=== PATIENT | male | born 1940 | race Caucasian/White ===

== ENCOUNTER → 2016-11-26 | Outpatient (CLI) | payer MEDICARE, BC ==
[~2016-11-26] MED LIST: ACYC-1 PO; ALLO300T74 PO; ASPI-13 PO; CALC-586 PO; CHEMOTHERAPY SQ; GLIM2TAB26 PO; LENA10CA PO; METF-206 PO; SULF1TAB42 PO; [UNRECOGNIZED DRUG - CODE] PO; [UNRECOGNIZED DRUG - OTHER]
[2016-11-26 09:25] LABS: HCT - HEMATOCRIT 33.3 % (41-53); HGB - HEMOGLOBIN 10.5 GM/DL (13.5-17.5); MEAN CORPUSCULAR HGB CONC(MCHC 31.5 GM/DL (31-37); MEAN CORPUSCULAR VOLUME 85.6 UM3 (80-100); MEAN PLATELET VOLUME 10.5 UM3 (9.4-12.4); RED BLOOD COUNT 3.89 M/MM3 (4.50-5.90); WBC - WHITE BLOOD COUNT 3.6 T/MM3 (4.5-11.0)
[2016-11-26 09:34] LABS: ALBUMIN 4.1 G/DL (3.5-5.0); ALBUMIN/GLOBULIN RATIO 1.2 RATIO (1.1-2.2); ALKALINE PHOSPHATASE 75 U/L (38-126); ALT (SGPT) 23 U/L (21-72); ANION GAP 9 MEQ/L (5-15); AST (SGOT) 16 U/L (17-59); BUN/CREATININE RATIO 16 RATIO (6-26); CALCIUM 9.4 MG/DL (8.4-10.2); CHLORIDE 104 MEQ/L (98-107); CO2 - CARBON DIOXIDE 27 MEQ/L (22-30); CREATININE 0.7 MG/DL (0.8-1.5); GLOMERULAR FILTRATION RATE 110; GLUCOSE 242 MG/DL (75-110); LDH 302 U/L (313-618); MAGNESIUM 1.9 MG/DL (1.6-2.3); POTASSIUM 4.6 MEQ/L (3.6-5); SODIUM 140 MEQ/L (134-144); TOTAL PROTEIN 7.4 G/DL (6.3-8.2)
[2016-11-26 09:49] LABS: ANISOCYTOSIS 2+; MONOCYTES # (MANUAL) 0.3 T/MM3 (0-0.8); NEUTROPHILS #(MANUAL)-ABSOLUTE 2.3 T/MM3 (1.8-7.7); NUCLEATED RED BLOOD CELLS 6; POIKILOCYTOSIS 2+; TOTAL CELLS COUNTED 100 %
[2016-11-26 09:50] LABS: TEAR DROP CELLS 1+
== END ==
LOC: LAB 09:12
PROVIDERS: ATTEND Internal Medicine Hematology & Oncology
DX: C90.00 Multiple myeloma not having achieved remission (principal); M54.2 Cervicalgia; D64.9 Anemia, unspecified
CPT/HCPCS: 36415; 80053; 83615; 83735; 85025

== ENCOUNTER → 2016-12-21 | Outpatient (CLI) | payer MEDICARE, BC ==
[2016-12-21 09:00] LABS: HCT - HEMATOCRIT 30.3 % (41-53); HGB - HEMOGLOBIN 9.5 GM/DL (13.5-17.5); MEAN CORPUSCULAR HGB CONC(MCHC 31.4 GM/DL (31-37); MEAN CORPUSCULAR VOLUME 86.1 UM3 (80-100); MEAN PLATELET VOLUME 10.6 UM3 (9.4-12.4); RED BLOOD COUNT 3.52 M/MM3 (4.50-5.90); WBC - WHITE BLOOD COUNT 2.5 T/MM3 (4.5-11.0)
[2016-12-21 09:12] LABS: ALBUMIN 3.9 G/DL (3.5-5.0); ALBUMIN/GLOBULIN RATIO 1.4 RATIO (1.1-2.2); ALKALINE PHOSPHATASE 98 U/L (38-126); ALT (SGPT) 19 U/L (21-72); ANION GAP 14 MEQ/L (5-15); AST (SGOT) 14 U/L (17-59); BUN/CREATININE RATIO 17 RATIO (6-26); CALCIUM 9.1 MG/DL (8.4-10.2); CHLORIDE 105 MEQ/L (98-107); CO2 - CARBON DIOXIDE 24 MEQ/L (22-30); CREATININE 0.7 MG/DL (0.8-1.5); GLOMERULAR FILTRATION RATE 110; GLUCOSE 282 MG/DL (75-110); LDH 306 U/L (313-618); MAGNESIUM 1.9 MG/DL (1.6-2.3); POTASSIUM 3.6 MEQ/L (3.6-5); SODIUM 143 MEQ/L (134-144); TOTAL PROTEIN 6.7 G/DL (6.3-8.2)
[2016-12-21 09:36] LABS: BAND NEUTROPHILS # 0.1 T/MM3; LYMPHOCYTES # (MANUAL) 1.1 T/MM3 (1-4.8); MONOCYTES # (MANUAL) 0.2 T/MM3 (0-0.8); NEUTROPHILS #(MANUAL)-ABSOLUTE 1.1 T/MM3 (1.8-7.7); NUCLEATED RED BLOOD CELLS 6; TOTAL CELLS COUNTED 100 %
[2016-12-21 09:37] LABS: ANISOCYTOSIS 1+; BURR CELLS 2+; HELMET CELLS 1+; POIKILOCYTOSIS 2+; SCHISTOCYTES 1+
== END ==
LOC: LABN 08:52
PROVIDERS: ATTEND Internal Medicine Hematology & Oncology
DX: C90.00 Multiple myeloma not having achieved remission (principal); D46.Z Other myelodysplastic syndromes
CPT/HCPCS: 80053; 83615; 83735; 85025